=== PATIENT | female | born 1955 | race African-American/Black ===

== ENCOUNTER 2024-12-29 11:41 | Inpatient (IN) ==
[2024-12-29] MEDS ORDERED: [UNRECOGNIZED DRUG - OTHER] IV ONE (12:38)
--- NOTE | 2024-12-29 12:47 | Emergency Department Note ---
HPI - Extremity Problem General Chief complaint: Extremity Injury, Upper Stated complaint: blood clot in arm Time Seen by Provider: 12/29/24 12:44 Source: patient Mode of arrival: walk-in Limitations: no limitations History of Present Illness HPI Narrative: 69-year-old female presents to ER from her primary care provider's office for increased pain to the right arm, patient has had a ultrasound of the right arm outpatient which revealed a superficial thrombophlebitis from the bicep down to the wrist of the right arm. MD Complaint: Reports extremity pain and extremity swelling Onset (ago): day(s) (2) Pain Consistency: Reports constant Location: Reports right and upper extremity Quality: Reports aching and constant Radiation: Reports distal Relieving factors: Reports immobilization and rest Exacerbating factors: Reports range of motion and palpation Associated symptoms: Reports myalgias Context: Reports recent surgery/procedure Related Data Home Medications Medication Instructions Recorded Confirmed atorvastatin 40 mg tablet 40 mg PO BEDTIME 12/29/24 carvedilol 12.5 mg tablet 12.5 mg PO BID 12/29/2412/13 cefdinir 300 mg capsule 300 mg PO DAILY 12/29/24 furosemide 40 mg tablet 40 mg PO DAILY 12/29/2412/13 hydralazine 25 mg tablet 25 mg PO TID 12/29/24 ticagrelor 90 mg tablet (Brilinta) 90 mg PO BID 12/29/24 Allergies Allergy/AdvReac Type Severity Reaction Status Date / Time No Known Drug Allergies Allergy Verified 12/29/24 12:04 Review of Systems 2 Status of ROS 10 or more systems reviewed and unremark able except as noted in history and below Constitutional Reports: fatigue Musculoskeletal Reports: extremity pain, extremity swelling and joint pain Psychiatric Reports: anxiety PFSH PFSH Medical History (Updated 12/29/24 @ 12:14 by Pebbles Diallo RN) HLD (hyperlipidemia) CHF (congestive heart failure) Hypertension Surgical History (Updated 12/29/24 @ 12:14 by Pebbles Diallo RN) Hx of angioplasty Social History Smoking status: smoker, status unknown Life stressor details: n/a Exam 2 Constitutional: normal general appearance, distress noted (moderate), average body habitus, limitations noted (physical limitations) (Recent heart cath) and alert Vital Signs - 24 hr 12/29/24 11:50 12/29/24 11:50 Temperature 98.4 F Pulse Rate 83 Pulse Rate [Right Radial] 80 Respiratory Rate 16 Blood Pressure 139/65 Pulse Oximetry 98 Oxygen Delivery Me thod Room Air HENMT: normocephalic, head/scalp atraumatic, hearing grossly normal bilaterally, external ears normal, external nose normal, oropharynx normal, dentition normal and gingiva normal Eyes: PERRL, EOMs intact bilaterally, conjunctivae normal, no scleral icterus, no papilledema, normal visual rueda by confrontation, alignment normal, periorbital findings normal and no nystagmus Neck/C-Spine: visual inspection normal, trachea midline, cervical spine nontender, cervical full ROM noted, supple and no meningeal signs Lymph: no lymphadenopathy noted and no lymphedema noted Chest: inspection of chest normal Respiratory: breath sounds equal bilaterally, normal respiratory effort, clear to auscultation bilaterally, no wheezes, no rales, no retractions and no use of accessory muscles Cardiovascular: normal heart rate noted, regular rhythm noted, no gallop, no JVD, peripheral pulses 2+ throughout and no additional abnormal heart sounds Gastrointestinal: abdomen normal to inspection, abdomen soft to palpation, nontender to palpation, nondistended, normoactive bowel sounds, no hepatosplenomegaly, no masses, no pulsatile mass and no ascites Genitourinary: no CVA tenderness and bladder normal to palpation Back/Pelvis: spine normal to inspection Extremities: normal to inspection, normal to palpation, tenderness noted, full ROM, no joint enlargement and no deformity Patient has pain and tenderness to the right upper extremity from mid bicep down to the wrist related to a blood clot that was found on ultrasound indicating superficial thrombophlebitis of the right arm. Neurology: fire boss II-XII intact, no movement abnormality noted, no focal motor deficit noted, no sensory deficits noted, gait abnormality noted (unable to access), speech normal, coordination normal, no pronator drift noted, no fasciculations noted and GCS normal Psychiatry: Mental Status Exam documented within this Exam's Psych section mental status grossly normal, oriented x3, thought process normal, cooperative, affect normal, psychomotor activity normal and memory normal Life stressor details: n/a Skin: skin color normal, no rash, no lesions, no ecchymosis noted, no wounds, no lacerations, skin turgor normal, no jaundice, no petechiae, no mottling, nails normal and no alopecia Image: Body (4 view): 1. pain and tenderness, confirmed superficial thrombophlebitis Course Course Hospital Course: 69-year-old female that presented ER from her primary care provider's office for evaluation after having had a ultrasound of her right upper extremity where a superficial thrombophlebitis was discovered from the bicep area all the way to the wrist and arm has been evaluated by physical exam, UA, BMP, CBC, PT, PTT, INR and plain film chest x-ray as well as EKG results as noted in charting. CBC reveals anemia with a hemoglobin of 8.1, CMP reveals hypokalemia with a potassium of 3.3, dehydration reflected in a BUN of 29 creatinine 1.8 as well as acute kidney injury, patient is hypocalcemic at 8.4, patient's troponin shows elevation at 295 but was recently discharged from [facility] after having an acute myocardial infarction and repeat troponin shows decrease in the troponin level, patient's PT PTT and INR will continue to be serially monitored while patient is on a heparin drip for the blood clot in her right arm. Patient will be admitted to the [facility] floor for heparin drip administration and electrolyte replacement as necessary with repeat drug titration as necessary and pain control management. Patient and family are aware of treatment plan agreed with it. Vital Signs Vital signs: Vital Signs Temperature 98.4 F 12/29/24 11:50 Pulse Rate 83 12/29/24 11:50 Respiratory Rate 16 12/29/24 11:50 Blood Pressure 139/65 12/29/24 11:50 Pulse Oximetry 98 12/29/24 11:50 Oxygen Delivery Method Room Air 12/29/24 11:50 Temperature 98.4 F 12/29/24 11:50 Pulse Rate 80 12/29/24 11:50 Respiratory Rate 16 12/29/24 11:50 Blood Pressure 139/65 12/29/24 11:50 Pulse Oximetry 98 12/29/24 11:50 Oxygen Delivery Method Room Air 12/29/24 11:50 MDM - Extremity (Nontraumatic) MDM Narrative Medical decision making narrative: Medical Decision Making this patient involved physical exam, review of medical records, CBC, BMP, UA, Troponin, plain film chest x-ray, BNP, and CK. Differential Diagnosis Differential diagnosis: Likely cellulitis, superficial thrombophlebitis, deep venous thrombosis of upper extremity and other (Humeral fracture, shoulder dislocation) Medical Records Attestation: I reviewed the patient's medical records. Lab Data Attestation: I reviewed the patient's lab results. Labs: Lab Results 12/29/24 12/29/24 12/29/24 Range/Units 12:37 12:40 12:47 WBC 7.3 (4.3-9.3) K/uL RBC 3.6 L (4.00-5.50) M/uL Hgb 8.1 L (12.5-15.8) gm/dL Hct 24.9 L (35.9-46.7) % MCV 68.7 L (81.0-93.7) fl MCH 22.2 L (27.6-32.2) pg MCHC 32.3 L (33.1-35.3) g/dl RDW 17.6 H (11.4-14.2) % Plt Count 372 H (152-353) K/uL MPV 8.3 (6.9-10.8) fl Gran % 71.4 H (47.8-71.3) % Lymph % (Auto) 14.2 L (20.0-43.0) % [place] % (Auto) 10.6 H (3.6-9.8) % Eos % (Auto) 3.0 H (0.4-2.8) % Baso % (Auto) 0.8 (0.1-0.85) Lymph # (Auto) 1.0 L (1.1-3.1) [place] # (Auto) 0.8 L (1.1-3.1) Eos # (Auto) 0.2 (0.0-0.2) Baso # (Auto) 0.1 (0.0-0.1) Absolute Gran (auto) 5.2 (2.3-6.0) PT 15.2 H (12.1-15.0) SECONDS PT Normal Control 13.7 INR 1.16 APTT 32.0 (23.9-36.7) SECONDS Sodium 141 (136-145) mmol/L Potassium 3.3 L (3.6-5.2) mmol/L Chloride 103.0 (98-107) mmol/L Carbon Dioxide 27 (21-32) mmol/L Anion Gap 11.0 (4-14) mEq/L BUN 29 H (7-18) mg/dL Creatinine 1.8 H (0.6-1.3) mg/dL Estimated GFR 29.8 (>59.9) Glucose 102 (70-110) mg/dL Calcium 8.4 L (8.5-10.1) mg/dL Phosphorus 4.2 (2.5-4.9) mg/dL Magnesium 2.3 (1.8-2.4) mg/dL Troponin I High Sens 295.40 H* (4.0-60.4) ng/L B-Natriuretic Peptide 703.0 H (0-100) pg/mL Urine Color Yellow (STRAW/YELL.) Urine Appearance Clear (CLEAR) Ur Specific [place] 1.015 (1.001-1.035) Urine Protein Negative (NEGATIVE) Urine Glucose (UA) Normal (NORMAL) Urine Ketones Negative (NEGATIVE) Urine Occult Blood Negative (NEG - TRACE) Urine Nitrite Negative (NEGATIVE) Urine Bilirubin Negative (NEGATIVE) Urine Urobilinogen Normal (NORMAL) Ur Leukocyte Esterase Negative (NEGATIVE) Fluid pH 6.0 (5 - 9) / Range/Units 17:00 WBC (4.3-9.3) K/uL RBC (4.00-5.50) M/uL Hgb (12.5-15.8) gm/dL Hct (35.9-46.7) % MCV (81.0-93.7) fl MCH (27.6-32.2) pg MCHC (33.1-35.3) g/dl RDW (11.4-14.2) % Plt Count (152-353) K/uL MPV (6.9-10.8) fl Gran % (47.8-71.3) % Lymph % (Auto) (20.0-43.0) % [place] % (Auto) (3.6-9.8) % Eos % (Auto) (0.4-2.8) % Baso % (Auto) (0.1-0.85) Lymph # (Auto) (1.1-3.1) [place] # (Auto) (1.1-3.1) Eos # (Auto) (0.0-0.2) Baso # (Auto) (0.0-0.1) Absolute Gran (auto) (2.3-6.0) PT 14.9 (12.1-15.0) SECONDS PT Normal Control 13.7 INR 1.12 APTT 47.3 H (23.9-36.7) SECONDS Sodium (136-145) mmol/L Potassium (3.6-5.2) mmol/L Chloride (98-107) mmol/L Carbon Dioxide (21-32) mmol/L Anion Gap (4-14) mEq/L BUN (7-18) mg/dL Creatinine (0.6-1.3) mg/dL Estimated GFR (>59.9) Glucose (70-110) mg/dL Calcium (8.5-10.1) mg/dL Phosphorus (2.5-4.9) mg/dL Magnesium (1.8-2.4) mg/dL Troponin I High Sens 289.80 H* (4.0-60.4) ng/L B-Natriuretic Peptide (0-100) pg/mL Urine Color (STRAW/YELL.) Urine Appearance (CLEAR) Ur Specific [place] (1.001-1.035) Urine Protein (NEGATIVE) Urine Glucose (UA) (NORMAL) Urine Ketones (NEGATIVE) Urine Occult Blood (NEG - TRACE) Urine Nitrite (NEGATIVE) Urine Bilirubin (NEGATIVE) Urine Urobilinogen (NORMAL) Ur Leukocyte Esterase (NEGATIVE) Fluid pH (5 - 9) Imaging Data Imaging ordered: Chest x-ray, CT scan - head and other ( US RIGHT UPPER Extremity) Attestation: I have reviewed the pertinent imaging results. My impression: No acute cardiopulmonary process. Radiologist's impression: EXAM: Right upper extremity venous Doppler evaluation HISTORY: Right upper extremity pain and swelling, history recent IV TECHNIQUE: Multiple grayscale sonographic images were obtained. Color duplex Doppler evaluation was performed. COMPARISON: None FINDINGS: Jugular vein, subclavian vein, axillary vein, brachial vein, and basilic veins, radial vein, ulnar veins are patent demonstrating normal flow, compression, and distal augmentation. Thrombus is identified in a long segment of cephalic vein consistent with superficial thrombophlebitis. IMPRESSION: Exam negative for deep venous thrombosis right upper extremity Exam positive for superficial thrombophlebitis involving a long segment of cephalic vein extending to the wrist. THIS IS AN ELECTRONICALLY VERIFIED FINAL REPORT 12/29/2024 11:45 AM - Electronically signed by Raymond Rondon MD EXAM: CT HEAD/BRAIN WO CON HISTORY: Confusion COMPARISON: None. TECHNIQUE: Axial non-contrast images of the head were obtained with coronal and sagittal reformats provided. Radiation dose: 1156.6 mGy-cm total DLP FINDINGS: No abnormal areas of acute attenuation in the brain parenchyma. Small focus of encephalomalacia in the central aspect of the sonia and in the right basal ganglia extending to the lateral margin of the caudate head. Story-white differentiation remains intact. No intracranial, extra-axial, fluid collection. No hemorrhage. Periventricular chronic microvascular disease. No mass, mass effect or midline shift. Age related brain parenchymal global atrophy. No ventriculomegaly. No acute fracture. Sinuses are well aerated. Mastoid air cells are well aerated. Globes and intra-orbital contents are unremarkable. IMPRESSION: No acute intracranial abnormality identified. THIS IS AN ELECTRONICALLY VERIFIED FINAL REPORT 12/29/2024 7:26 PM - Electronically signed by Marbin Burns MD ECG Data Attestation ECG: I have reviewed the pertinent ECG results. Interpretation: Sinus rhythm rate 81 Normal P axis PACs RR 740 WV 209 QT 463 P axis 49 QRS 45 T -33 prolonged QT No STEMI Discharge Plan Discharge Patient Disposition: Admitted As Observation Condition: Stable Clinical Impression: Superficial thrombophlebitis of arm, Acute hypokalemia, Hypocalcemia, Acute kidney injury, Dehydration, Anemia Time of Disposition: 14:30
[2024-12-29 12:55] LABS: Basophils #(Absolute) Auto 0.1 (0.0-0.1); Basophils%(Percent) Auto 0.8 (0.1-0.85); Eosinophils#(Absolute)Auto 0.2 (0.0-0.2); Granulocytes % - Auto 71.4 % (47.8-71.3); Granulocytes#(Absolute)- Auto 5.2 (2.3-6.0); Hematocrit 24.9 % (35.9-46.7); Mean Corpuscular Volume 68.7 fl (81.0-93.7); Monocytes #(Absolute)- Auto 0.8 (1.1-3.1); Monocytes %(Percent)- Auto 10.6 % (3.6-9.8); Platelet Count 372 K/uL (152-353); White Blood Count 7.3 K/uL (4.3-9.3)
[2024-12-29 12:57] LABS: Potassium 3.3 mmol/L (3.6-5.2)
[2024-12-29 15:01] LABS: Specific Gravity Urine 1.015 (1.001-1.035); Urine Appearance CLEAR (CLEAR); Urine Blood NEGATIVE (NEG - TRACE); Urine Color YELLOW (STRAW/YELL.); Urine Urobilinogen Normal (NORMAL)
[2024-12-29 17:27] LABS: INR 1.16
[2024-12-29] MEDS ORDERED: DOCUSATE SODIUM 100 MG CAPSULE PO PRN (17:45)
[2024-12-29] MEDS ORDERED: MAGNESIUM, ALUMINUM HYDROXIDE 30 ML ORAL.SUSP PO PRN (17:45)
[2024-12-29] MEDS ORDERED: ONDANSETRON HCL/PF 4 MG/2 ML VIAL INJ PRN (17:45)
[2024-12-29] MEDS ORDERED: ACETAMINOPHEN 500 MG TABLET PO PRN (17:45)
[2024-12-29] MEDS ORDERED: MORPHINE SULFATE 4 MG/ML CARTRIDGE IV PRN (17:55)
[2024-12-29] MEDS ORDERED: HYDROCODONE/ACETAMINOPHEN 7.5/325MG TABLET PO PRN (17:55)
[2024-12-29 18:23] LABS: INR 1.12
[2024-12-29] MEDS: FUROSEMIDE 40 MG TABLET PO STA (20:34)
[2024-12-29] MEDS: carvediloL 25 MG TABLET PO ONE (21:50)
[2024-12-29] MEDS: ATORVASTATIN CALCIUM 40 MG TABLET PO ONE (21:51)
[2024-12-29] MEDS: CEFDINIR 300 MG CAPSULE PO ONE (21:51)
[2024-12-29] MEDS: HYDRALAZINE HCL 25 MG TABLET PO ONE (21:53)
[2024-12-30 05:18] LABS: Basophils #(Absolute) Auto 0.1 (0.0-0.1); Basophils%(Percent) Auto 1.1 (0.1-0.85); Eosinophils#(Absolute)Auto 0.3 (0.0-0.2); Eosinophils%(Percent) Auto 4.1 % (0.4-2.8); Granulocytes % - Auto 66.3 % (47.8-71.3); Granulocytes#(Absolute)- Auto 4.6 (2.3-6.0); Mean Corpuscular Volume 67.9 fl (81.0-93.7); Monocytes #(Absolute)- Auto 0.8 (1.1-3.1); Platelet Count 335 K/uL (152-353); White Blood Count 6.9 K/uL (4.3-9.3)
[2024-12-30 05:27] LABS: Potassium 3.5 mmol/L (3.6-5.2)
[2024-12-30 05:35] LABS: Hematocrit 22.8 % (35.9-46.7)
[2024-12-30] MEDS: CEFTRIAXONE SODIUM 1 GM in 0.9 % SODIUM CHLORIDE MB+ 50 ML IV SCH (10:00)
--- NOTE | 2024-12-30 10:09 | History & Physical Report ---
H&P: HPI History of Present Illness Chief complaint: blood clot in arm Review of Systems Status of ROS 10 or more systems reviewed and unremark able except as noted in history and below Constitutional Reports: fatigue Musculoskeletal Reports: extremity pain, extremity swelling and joint pain Psychiatric Reports: anxiety Endocrine Reports: fatigue PFSH PFSH Medical History (Updated 12/30/24 @ 10:08 by Lev Neves NP) Thrombophlebitis arm HLD (hyperlipidemia) CHF (congestive heart failure) Hypertension Surgical History (Updated 12/29/24 @ 12:14 by Pebbles Diallo RN) Hx of angioplasty Social History Smoking status: smoker, status unknown Problems where you live: no known problems Highest level of school completed/degree received: high school Life stressor details: n/a Gender Identity: female Meds Home Medications and Allergies Home Medications Medication Instructions Recorded Confirmed Type atorvastatin 40 mg tablet 40 mg PO BEDTIME 12/29/24 History carvedilol 12.5 mg tablet 12.5 mg PO BID 12/29/2412/13 History cefdinir 300 mg capsule 300 mg PO DAILY 12/29/24 History furosemide 40 mg tablet 40 mg PO DAILY 12/29/2412/13 History hydralazine 25 mg tablet 25 mg PO TID 12/29/24 History ticagrelor 90 mg tablet (Brilinta) 90 mg PO BID 12/29/24 History Allergies Allergy/AdvReac Type Severity Reaction Status Date / Time No Known Drug Allergies Allergy Verified 12/29/24 12:04 Exam Constitutional: Vital Signs - 24 hr 12/29/24 11:50 12/29/24 11:50 12/29/24 14:33 Temperature 98.4 F Pulse Rate 83 Pulse Rate [Right Radial] 80 Respiratory Rate 16 Blood Pressure 139/65 Blood Pressure [Le ft Arm] Pulse Oximetry 98 Oxygen Delivery Me thod Room Air Room Air 12/29/24 19:00 12/29/24 19:30 12/29/24 20:05 Temperature Pulse Rate 80 81 94 H Pulse Rate [Right Radial] Respiratory Rate 14 15 16 Blood Pressure 155/60 149/59 180/98 Blood Pressure [Le ft Arm] Pulse Oximetry 96 96 96 Oxygen Delivery Me thod Room Air Room Air Room Air 12/29/24 20:05 12/29/24 23:16 12/30/24 03:19 Temperature 98.4 F 97.8 F 98.4 F Pulse Rate 94 H Pulse Rate [Right Radial] 86 76 Respiratory Rate 18 21 18 Blood Pressure 180/98 Blood Pressure [Le ft Arm] 141/71 123/53 Pulse Oximetry 96 96 96 Oxygen Delivery Me thod Room Air Room Air 12/30/24 07:34 12/30/24 07:37 Temperature 99.2 F 99.2 F Pulse Rate Pulse Rate [Right Radial] 46 L 46 L Respiratory Rate 19 19 Blood Pressure Blood Pressure [Le ft Arm] 146/69 146/69 Pulse Oximetry 97 97 Oxygen Delivery Me thod Room Air Room Air Results Labs Labs: CBC 12/29/24 12/30/24 Range/Units 12:40 05:06 WBC 7.3 6.9 (4.3-9.3) K/uL RBC 3.6 L 3.4 L (4.00-5.50) M/uL Hgb 8.1 L 7.4 L (12.5-15.8) gm/dL Hct 24.9 L 22.8 L* (35.9-46.7) % Plt Count 372 H 335 (152-353) K/uL Gran % 71.4 H 66.3 (47.8-71.3) % Lymph % (Auto) 14.2 L 17.5 L (20.0-43.0) % [place] % (Auto) 10.6 H 11.0 H (3.6-9.8) % Eos % (Auto) 3.0 H 4.1 H (0.4-2.8) % Baso % (Auto) 0.8 1.1 H (0.1-0.85) Lymph # (Auto) 1.0 L 1.2 (1.1-3.1) [place] # (Auto) 0.8 L 0.8 L (1.1-3.1) Eos # (Auto) 0.2 0.3 H (0.0-0.2) Baso # (Auto) 0.1 0.1 (0.0-0.1) Absolute Gran (auto) 5.2 4.6 (2.3-6.0) CMP 12/29/24 12/30/24 12:40 05:06 Sodium 141 143 Potassium 3.3 L 3.5 L Chloride 103.0 107.0 Carbon Dioxide 27 25 BUN 29 H 25 H Creatinine 1.8 H 1.5 H Glucose 102 96 Calcium 8.4 L 8.1 L Urine 12/29/24 12:37 Urine Color Yellow Urine Appearance Clear Ur Specific [place] 1.015 Urine Protein Negative Urine Glucose (UA) Normal
[2024-12-30] MEDS: PANTOPRAZOLE SODIUM 40 MG TABLET.DR PO SCH (10:26)
[2024-12-30] MEDS: HYDRALAZINE HCL 25 MG TABLET PO SCH (10:27)
--- NOTE | 2024-12-30 11:04 | History & Physical Report ---
H&P: HPI History of Present Illness Chief complaint: blood clot in arm Narrative: Ms. Layla Gomez is a 69 year old female admitted on 12/29/24 for further evaluation after being sent to the ER from PCP office after outpatient ultrasound revealed a superficial thrombophlebitis from the bicep down to the wrist of the right arm. Complete medical history unknown. Patient has a known medical of hisotry HTN, CAD, and CHF. CT and CXR were completed in the ER and there were no acute findings. WBC WNL. Initial CBC revealed anemia with a hemoglobin of 8.1 and hematocrit of 24.9. Hemoglobin has decreased to 7.4 this morning with a hematocrit of 22.8. Initial CMP revealed hypokalemia with a potassium of 3.3. Potassium has improved to 3.5 this morning. Initial BUN of 29 and creatinine of 1.8. BUN has improved to 25 with a creatinine of 1.5 this morning. Initial BNP was 703 and has increased to 1030 this morning. Patient's initial troponin showed elevation at 295.4 but patient was recently discharged from [facility] in [place] after having an acute myocardial infarction with cardiac stent placement. Serial troponin shows a decrease. Admitted to the floor and placed on a heparin drip per protocol. Patient appeared lethargic upon assessment and was oriented to person and place only. Right arm noted to have bruising, erythema, warmth, and non-pitting edema. Firmness and tenderness noted upon palpation to right forearm extending from wrist to elbow. Bruising also noted to right groin area. Patient is a poor historian at this time so daughter Rossy was contacted for patient's medical history. On 12/22/24 patient presented to the ER with complaints of cough, dyspnea, and swelling. She ultimately went into respiratory distress and was placed on a ventilator and transferred to [facility] in [place] for Acute TN, Acute CHF, Acute pulmonary edema, and Acute respiratory distress. Patient underwent coronary stent placement and was discharged from [facility] on 12/27/24 per daughter. Daughter reports that prior to patient's intubation she was alert and oriented, ambulatory, independent and "working". Patient has been having intermittent episodes of confusion during hospitalization that are consistent with hospital acquired delirium. Awaiting records from Dr. Delgado and [facility]. Review of Systems 2 Status of ROS 10 or more systems reviewed and unremark able except as noted in history and below Constitutional Reports: fatigue (lethargic) Musculoskeletal Reports: extremity pain, extremity swelling and joint pain Neurological Reports: difficulty communicating thoughts Endocrine Reports: fatigue PFSH PFSH Medical History (Updated 12/30/24 @ 14:34 by Lev Neves NP) Thrombophlebitis arm HLD (hyperlipidemia) CHF (congestive heart failure) Hypertension Surgical History (Updated 12/29/24 @ 12:14 by Pebbles Diallo RN) Hx of angioplasty Social History Smoking status: smoker, status unknown Problems where you live: no known problems Highest level of school completed/degree received: high school Life stressor details: n/a Gender Identity: female Meds Home Medications and Allergies Home Medications Medication Instructions Recorded Confirmed Type atorvastatin 40 mg tablet 40 mg PO BEDTIME 12/29/24 History carvedilol 12.5 mg tablet 12.5 mg PO BID 12/29/2412/13 History cefdinir 300 mg capsule 300 mg PO DAILY 12/29/24 History furosemide 40 mg tablet 40 mg PO DAILY 12/29/2412/13 History hydralazine 25 mg tablet 25 mg PO TID 12/29/24 History ticagrelor 90 mg tablet (Brilinta) 90 mg PO BID 12/29/24 History Allergies Allergy/AdvReac Type Severity Reaction Status Date / Time No Known Drug Allergies Allergy Verified 12/29/24 12:04 Exam 2 Constitutional: normal general appearance, no apparent distress, average body habitus and alert Vital Signs - 24 hr 12/29/24 11:50 12/29/24 11:50 12/29/24 14:33 Temperature 98.4 F Pulse Rate 83 Pulse Rate [Right Radial] 80 Respiratory Rate 16 Blood Pressure 139/65 Blood Pressure [Le ft Arm] Pulse Oximetry 98 Oxygen Delivery Me thod Room Air Room Air 12/29/24 19:00 12/29/24 19:30 12/29/24 20:05 Temperature Pulse Rate 80 81 94 H Pulse Rate [Right Radial] Respiratory Rate 14 15 16 Blood Pressure 155/60 149/59 180/98 Blood Pressure [Le ft Arm] Pulse Oximetry 96 96 96 Oxygen Delivery Me thod Room Air Room Air Room Air 12/29/24 20:05 12/29/24 23:16 12/30/24 03:19 Temperature 98.4 F 97.8 F 98.4 F Pulse Rate 94 H Pulse Rate [Right Radial] 86 76 Respiratory Rate 18 21 18 Blood Pressure 180/98 Blood Pressure [Le ft Arm] 141/71 123/53 Pulse Oximetry 96 96 96 Oxygen Delivery Me thod Room Air Room Air 12/30/24 07:34 12/30/24 07:37 Temperature 99.2 F 99.2 F Pulse Rate Pulse Rate [Right Radial] 46 L 46 L Respiratory Rate 19 19 Blood Pressure Blood Pressure [Le ft Arm] 146/69 146/69 Pulse Oximetry 97 97 Oxygen Delivery Me thod Room Air Room Air Lymph: no lymphadenopathy noted and no lymphedema noted Chest: inspection of chest normal and palpation of chest normal Respiratory: breath sounds equal bilaterally, normal respiratory effort, clear to auscultation bilaterally, no wheezes, no rales, no retractions and no use of accessory muscles Cardiovascular: normal heart rate noted, regular rhythm noted, no gallop, no rub, no murmur, no JVD and no clicks Gastrointestinal: abdomen normal to inspection, abdomen soft to palpation, nontender to palpation, nontender to percussion, nondistended and normoactive bowel sounds Genitourinary: no CVA tenderness and bladder normal to palpation Back/Pelvis: spine normal to inspection, no thoracic spine tenderness, no lumbar spine tenderness, thoracic spine ROM normal and lumbar spine ROM normal Extremities: Bruising, erythema, edema, and tenderness to right upper extremity. Psychiatry: Mental Status Exam documented in the separate MSE Skin: Bruising to right arm and right groin from recent cardiac stent placement. Image: Body (4 view): 1. bruising, edema, erythema 2. bruising, nodule 3. bruising, edema, erythema Assessment and Plan Assessment and Plan (1) Thrombophlebitis arm: Code(s): I80.8 - Phlebitis and thrombophlebitis of other sites (2) Anemia: Code(s): D64.9 - Anemia, unspecified (3) Altered mental status: Code(s): R41.82 - Altered mental status, unspecified (4) Weakness: Code(s): R53.1 - Weakness Plan Thrombophlebitis: 1. Heparin drip per protocol 2. Rocephin 1 gram IV daily 3. Blood Cultures X 2 4. AU Consult 5. Obtain records from Dr. Delgado and [facility] in [place] 6. Repeat Troponin Anemia: 1. Anemia Profile 2. Occult Blood Feces 3. Type and Cross 4. Repeat CBC at 1430 and in am 5. Consider transfusion PRBCs Altered Mental Status: 1. Neuro Checks Q4H 2. Liver Function 3. Consider checking ammonia if LFTs elevated 4. Psych Evaluation Weakness: 1. PT evaluation 2. Fall Precautions Results Labs Labs: CBC 12/29/24 12/30/24 Range/Units 12:40 05:06 WBC 7.3 6.9 (4.3-9.3) K/uL RBC 3.6 L 3.4 L (4.00-5.50) M/uL Hgb 8.1 L 7.4 L (12.5-15.8) gm/dL Hct 24.9 L 22.8 L* (35.9-46.7) % Plt Count 372 H 335 (152-353) K/uL Gran % 71.4 H 66.3 (47.8-71.3) % Lymph % (Auto) 14.2 L 17.5 L (20.0-43.0) % [place] % (Auto) 10.6 H 11.0 H (3.6-9.8) % Eos % (Auto) 3.0 H 4.1 H (0.4-2.8) % Baso % (Auto) 0.8 1.1 H (0.1-0.85) Lymph # (Auto) 1.0 L 1.2 (1.1-3.1) Becker # (Auto) 0.8 L 0.8 L (1.1-3.1) Eos # (Auto) 0.2 0.3 H (0.0-0.2) Baso # (Auto) 0.1 0.1 (0.0-0.1) Absolute Gran (auto) 5.2 4.6 (2.3-6.0) CMP 12/29/24 12/30/24 12:40 05:06 Sodium 141 143 Potassium 3.3 L 3.5 L Chloride 103.0 107.0 Carbon Dioxide 27 25 BUN 29 H 25 H Creatinine 1.8 H 1.5 H Glucose 102 96 Calcium 8.4 L 8.1 L Urine 12/29/24 12:37 Urine Color Yellow Urine Appearance Clear Ur Specific Palmer 1.015 Urine Protein Negative Urine Glucose (UA) Normal ECG Attestation: I have reviewed the pertinent ECG results. Imaging Imaging ordered: Chest x-ray, CT scan - head and Venous US Attestation: I have reviewed the pertinent imaging results. Radiologist's impression: US VENOUS DUPLEX FINDINGS: Jugular vein, subclavian vein, axillary vein, brachial vein, and basilic veins, radial vein, ulnar veins are patent demonstrating normal flow, compression, and distal augmentation. Thrombus is identified in a long segment of cephalic vein consistent with superficial thrombophlebitis. IMPRESSION: Exam negative for deep venous thrombosis right upper extremity Exam positive for superficial thrombophlebitis involving a long segment of cephalic vein extending to the wrist. CHEST X-RAY FINDINGS: The trachea is midline. The cardiac silhouette is slight to moderately enlarged. The lungs are clear without focal infiltrate or effusion. The bony thorax is unremarkable. IMPRESSION: No acute cardiopulmonary disease. CT HEAD FINDINGS: No abnormal areas of acute attenuation in the brain parenchyma. Small focus of encephalomalacia in the central aspect of the sonia and in the right basal ganglia extending to the lateral margin of the caudate head. Story-white differentiation remains intact. No intracranial, extra-axial, fluid collection. No hemorrhage. Periventricular chronic microvascular disease. No mass, mass effect or midline shift. Age related brain parenchymal global atrophy. No ventriculomegaly. No acute fracture. Sinuses are well aerated. Mastoid air cells are well aerated. Globes and intra-orbital contents are unremarkable. IMPRESSION: No acute intracranial abnormality identified.
[2024-12-30] MEDS: carvediloL 6.25 MG TABLET PO SCH (11:34)
[2024-12-30] MEDS: FUROSEMIDE 40 MG TABLET PO SCH (11:34)
[2024-12-30] MEDS ORDERED: PANTOPRAZOLE SODIUM 40 MG TABLET.DR PO SCH (12:00)
[2024-12-30 14:31] LABS: Basophils%(Percent) Auto 0.3 (0.1-0.85); Eosinophils#(Absolute)Auto 0.3 (0.0-0.2); Granulocytes % - Auto 68.3 % (47.8-71.3); Granulocytes#(Absolute)- Auto 4.5 (2.3-6.0); Monocytes #(Absolute)- Auto 0.8 (1.1-3.1); Monocytes %(Percent)- Auto 11.8 % (3.6-9.8); Platelet Count 350 K/uL (152-353); White Blood Count 6.6 K/uL (4.3-9.3)
[2024-12-30 14:34] LABS: Hematocrit 22.6 % (35.9-46.7)
[2024-12-30] MEDS: ATORVASTATIN CALCIUM 40 MG TABLET PO SCH (20:17)
[2024-12-31 06:15] LABS: Basophils #(Absolute) Auto 0.1 (0.0-0.1); Eosinophils#(Absolute)Auto 0.3 (0.0-0.2); Granulocytes#(Absolute)- Auto 4.1 (2.3-6.0); White Blood Count 6.4 K/uL (4.3-9.3)
[2024-12-31 06:22] LABS: Basophils%(Percent) Auto 1.1 (0.1-0.85); Eosinophils%(Percent) Auto 5.2 % (0.4-2.8); Mean Corpuscular Volume 68.3 fl (81.0-93.7); Monocytes #(Absolute)- Auto 0.7 (1.1-3.1); Platelet Count 348 K/uL (152-353)
[2024-12-31 06:29] LABS: Potassium 3.8 mmol/L (3.6-5.2)
--- NOTE | 2024-12-31 09:51 | Progress Note ---
Exam 2 Exam: Patient received sitting up in the recliner at bedside eating breakfast. She is awake, alert and oriented this morning. She reports that she feels better today and that her arm pain has improved. Right arm has improved in appearance with decreased swelling and bruising. AU consult completed with Dr. Cabello yesterday and agreeable with plan while awaiting records from [facility] in [place]. AU to continue to follow. H&H has continued to decline with a Hemoglobin of 6.9 and Hematocrit of 21 this morning. Occult blood feces is pending. Patient reports she hasn't had a bowel movement "so far this week". Will add Miralax. BNP has continued to increase and is now 1520. Will plan to transfuse 2 units PRBCs and diurese with Furosemide 20mg IV between units. Spoke with patient's hydraulic tester Dr. Silva and he recommended discontinuing heparin drip due to no evidence of DVT. He also recommended resuming home Brillinta and ASA along with supportive management including compression, elevation, and warm compresses to the right arm. Constitutional: normal general appearance, no apparent distress and average body habitus Vital Signs - 24 hr 12/30/24 11:51 12/30/24 15:53 12/30/24 20:00 Temperature 99.1 F 98.4 F 98.8 F Pulse Rate [Right Radial] 57 L 82 86 Respiratory Rate 19 18 16 Blood Pressure [Le ft Arm] 168/76 139/70 171/72 Pulse Oximetry 96 96 95 Oxygen Delivery Me thod Room Air Room Air Room Air 12/30/24 23:57 12/31/24 03:00 12/31/24 07:00 Temperature 98.5 F 98.7 F 98 F Pulse Rate [Right Radial] 85 84 89 Respiratory Rate 18 16 19 Blood Pressure [Le ft Arm] 167/74 158/76 150/100 Pulse Oximetry 96 100 Oxygen Delivery Me thod Room Air Room Air HENMT: normocephalic, head/scalp atraumatic, hearing grossly normal bilaterally, external ears normal and EACs normal Eyes: PERRL, EOMs intact bilaterally, conjunctivae normal and no scleral icterus Neck/C-Spine: visual inspection normal and trachea midline Lymph: no lymphadenopathy noted and no lymphedema noted Chest: inspection of chest normal and palpation of chest normal Respiratory: breath sounds equal bilaterally, normal respiratory effort, clear to auscultation bilaterally, no wheezes, no rales, no retractions and no use of accessory muscles Cardiovascular: normal heart rate noted, regular rhythm noted, no gallop, no rub, no murmur, no JVD and no clicks Gastrointestinal: abdomen normal to inspection, abdomen soft to palpation, nontender to palpation, nontender to percussion, nondistended and normoactive bowel sounds Genitourinary: no CVA tenderness and bladder normal to palpation Back/Pelvis: spine normal to inspection, no thoracic spine tenderness, no lumbar spine tenderness, thoracic spine ROM normal and lumbar spine ROM normal Extremities: Bruising, erythema, edema, and tenderness to right upper extremity has improved. Psychiatry: Mental Status Exam documented within this Exam's Psych section oriented x3, thought process normal, cooperative and affect normal Skin: skin color normal Bruising to right arm and right groin from recent cardiac stent placement. Image: Body (4 view): 1. Bruising, mild swelling and erythema 2. Bruising 3. Bruising, mild swelling, and erythema Progress Note: Objective Labs Labs: CBC 12/30/24 12/31/24 Range/Units 14:25 05:30 WBC 6.6 6.4 (4.3-9.3) K/uL RBC 3.3 L 3.1 L (4.00-5.50) M/uL Hgb 7.2 L 6.9 L (12.5-15.8) gm/dL Hct 22.6 L* 21.0 L* (35.9-46.7) % Plt Count 350 348 (152-353) K/uL Gran % 68.3 64.0 (47.8-71.3) % Lymph % (Auto) 15.6 L 18.7 L (20.0-43.0) % [place] % (Auto) 11.8 H 11.0 H (3.6-9.8) % Eos % (Auto) 4.0 H 5.2 H (0.4-2.8) % Baso % (Auto) 0.3 1.1 H (0.1-0.85) Lymph # (Auto) 1.0 L 1.2 (1.1-3.1) [place] # (Auto) 0.8 L 0.7 L (1.1-3.1) Eos # (Auto) 0.3 H 0.3 H (0.0-0.2) Baso # (Auto) 0.0 0.1 (0.0-0.1) Absolute Gran (auto) 4.5 4.1 (2.3-6.0) CMP 12/31/24 05:30 Sodium 141 Potassium 3.8 Chloride 106.0 Carbon Dioxide 26 BUN 23 H Creatinine 1.6 H Glucose 89 Calcium 8.1 L Liver Function 12/31/24 Range/Units 05:30 Total Bilirubin 0.50 (0.0-1.0) mg/dL AST 16 (15-37) U/L ALT 30 (30-65) U/L Alkaline Phosphatase 73 (50-136) U/L Albumin 2.2 L (3.4-5.0) g/dL Urine 12/29/24 12:37 Urine Color Yellow Urine Appearance Clear Ur Specific [place] 1.015 Urine Protein Negative Urine Glucose (UA) Normal Progress Note: A&P Assessment and Plan (1) Thrombophlebitis arm: (2) Anemia: (3) Altered mental status: (4) Weakness: (5) Constipation: Plan Thrombophlebitis: 1. D/C Heparin drip per Dr. Silva/Tub Chucker 2. Resume home Brillinta 90mg BID per Dr. Silva/Tub Chucker 3. Resume home ASA 81mg daily per Dr. Silva/Tub Chucker 4. Rocephin 1 gram IV daily 5. Blood Cultures Pending 6. AU will continue to follow 7. Compression, Elevation, and Warm Compress to right arm per Dr. Silva/Tub Chucker 8. Repeat Troponin Anemia: 1. Transfuse 2 units PRBCs 2. Occult Blood Feces pending 3. Follow CBC Altered Mental Status: 1. Neuro Checks Q4H 2. Liver Function-WNL Weakness: 1. PT evaluation 2. Fall Precautions Constipation: 1. Add Miralax 17gm daily Fall Risk Details Jones Fall Scale Risk Level: Moderate Fall Risk Current Medications: Current Medications Acetaminophen (Acetaminophen 500 Mg Tablet) 1,000 mg PO Q6H PRN PRN Reason: MILD PAIN SCALE 1-4 Hydrocodone Bitart/Acetaminophen (Hydrocodone/Acetaminophen 7.5/325mg Tablet) 1 each PO Q4H PRN PRN Reason: Moderate Pain SCALE 5-7 Atorvastatin Calcium (Atorvastatin Calcium 40 Mg Tablet) 40 mg PO BEDTIME [facility] Last Admin: 12/30/24 20:17 Dose: 40 mg Carvedilol (Carvedilol 6.25 Mg Tablet) 12.5 mg PO BID [facility] Last Admin: 12/31/24 08:13 Dose: 12.5 mg Docusate Sodium (Docusate Sodium 100 Mg Capsule) 100 mg PO DAILY PRN PRN Reason: Constipation Furosemide (Furosemide 40 Mg Tablet) 40 mg PO DAILY [facility] Last Admin: 12/31/24 08:13 Dose: 40 mg Hydralazine HCl (Hydralazine Hcl 25 Mg Tablet) 25 mg PO TID [facility] Last Admin: 12/31/24 08:13 Dose: 25 mg Heparin Sodium/Dextrose (Heparin/D5w 06538 U/250 Ml) 900 unit in 9 mls @ 0 mls/hr 12 unit/kg (900 unit) IV CONT [facility]; Protocol Last Admin: 12/31/24 07:26 Dose: Not Given Ceftriaxone Sodium 1 gm/ (Sodium Chloride) 50 mls @ 100 mls/hr IV Q24H [facility] Last Infusion: 12/30/24 10:30 Dose: Infused Magnesium Hydroxide (Magnesium, Aluminum Hydroxide 30 Ml Oral.Susp) 30 ml PO DAILY PRN PRN Reason: Heartburn Morphine Sulfate (Morphine Sulfate 4 Mg/Ml Cartridge) 4 mg IV Q6H PRN PRN Reason: Severe Pain SCALE 8-10 Ondansetron HCl (Ondansetron Hcl/Pf 4 Mg/2 Ml Vial) 4 mg INJ Q6H PRN PRN Reason: Nausea And Vomiting Pantoprazole Sodium (Pantoprazole Sodium 40 Mg Tablet.Dr) 40 mg PO DAILY [facility] Last Admin: 12/31/24 08:13 Dose: 40 mg Polyethylene Glycol (Polyethylene Glycol 3350 17 Gm Powd.Pack) 17 gm PO DAILY [facility] Time Spent With Patient Time: Total time spent is greater than 50% in coordination of care (as documented) at patient's floor/unit and/or counseling patient: Time with patient: 25 - 35 minutes
[2024-12-31] MEDS: ASPIRIN 81 MG TABLET.DR PO SCH (10:59)
[2024-12-31] MEDS: polyethylene glycoL 3350 17 GM POWD.PACK PO SCH (11:00)
[2024-12-31] MEDS: TICAGRELOR 60 MG TABLET PO SCH (11:00)
[2024-12-31] MEDS: FUROSEMIDE 20 MG/2 ML VIAL IV ONE ×2 (13:00→17:34)
[2024-12-31] MEDS: 0.9 % SODIUM CHLORIDE 250 ML IV ONE (17:33)
[2025-01-01 06:12] LABS: Basophils #(Absolute) Auto 0.1 (0.0-0.1); Basophils%(Percent) Auto 0.7 (0.1-0.85); Eosinophils#(Absolute)Auto 0.4 (0.0-0.2); Eosinophils%(Percent) Auto 5.1 % (0.4-2.8); Granulocytes % - Auto 76.3 % (47.8-71.3); Granulocytes#(Absolute)- Auto 6.3 (2.3-6.0); Hematocrit 31.1 % (35.9-46.7); Mean Corpuscular Volume 73.2 fl (81.0-93.7); Monocytes #(Absolute)- Auto 0.6 (1.1-3.1); Monocytes %(Percent)- Auto 7.8 % (3.6-9.8); Platelet Count 343 K/uL (152-353); White Blood Count 8.3 K/uL (4.3-9.3)
[2025-01-01 08:33] VITALS: PULSE 81
--- NOTE | 2025-01-01 10:35 | Discharge Summary ---
DS: Providers Provider Date of admission: 12/29/24 18:23 Primary care physician: Lizeth He DO Admitting clinician: Santy Diallo Attending physician on admission: Lev Neves Consults: 12/30/24 14:29 Consult to Physical Therapy Routine Comment: Consulting Provider: Reason for consultation: Weakness Physician Instructions: Evaluate and Treat Consult to Psychiatry Routine Comment: Consulting Provider: Lev Neves Physician Instructions: Reason for consultation: Confusion/Delirium Attending physician on discharge: Lev Neves Discharging clinician: Lizeth He Anticipated date of discharge: 01/06/25 DS: Diagnosis Discharge Diagnosis (1) Acute kidney injury: (2) Dehydration: (3) Thrombophlebitis arm: (4) Anemia: Qualifiers: Anemia type: other cause Other causes of anemia: other cause, not classified Qualified Code(s): D64.89 - Other specified anemias (5) Altered mental status: Qualifiers: Altered mental status type: unspecified Qualified Code(s): R41.82 - Altered mental status, unspecified (6) Weakness: (7) Constipation: Qualifiers: Constipation type: slow transit constipation Qualified Code(s): K59.01 - Slow transit constipation (8) HLD (hyperlipidemia): Qualifiers: Hyperlipidemia type: mixed hyperlipidemia Qualified Code(s): E78.2 - Mixed hyperlipidemia (9) Hypertension: Qualifiers: Hypertension type: primary hypertension Qualified Code(s): I10 - Essential (primary) hypertension (10) CHF (congestive heart failure): Qualifiers: Heart failure chronicity: acute on chronic Heart failure type: combined systolic and diastolic Qualified Code(s): I50.43 - Acute on chronic combined systolic (congestive) and diastolic (congestive) heart failure (11) CAD (coronary artery disease): Qualifiers: Associated angina: with stable angina Coronary Disease-Associated Artery/Lesion type: unspecified vessel or lesion type [place] vs. transplanted heart: unspecified whether [place] or transplanted heart Qualified Code(s): I25.118 - Atherosclerotic heart disease of [place] coronary artery with other forms of angina pectoris (12) Hypocalcemia: (13) Hypokalemia: DS: Summary Hospital Course Hospital Course: 12/30/2024 Ms. Layla Gomez is a 69 year old female admitted on 12/29/24 for further evaluation after being sent to the ER from PCP office after outpatient ultrasound revealed a superficial thrombophlebitis from the bicep down to the wrist of the right arm. Complete medical history unknown. Patient has a known medical of hisotry HTN, CAD, and CHF. CT and CXR were completed in the ER and there were no acute findings. WBC WNL. Initial CBC revealed anemia with a hemoglobin of 8.1 and hematocrit of 24.9. Hemoglobin has decreased to 7.4 this morning with a hematocrit of 22.8. Initial CMP revealed hypokalemia with a potassium of 3.3. Potassium has improved to 3.5 this morning. Initial BUN of 29 and creatinine of 1.8. BUN has improved to 25 with a creatinine of 1.5 this morning. Initial BNP was 703 and has increased to 1030 this morning. Patient's initial troponin showed elevation at 295.4 but patient was recently discharged from [facility] in [place] after having an acute myocardial infarction with cardiac stent placement. Serial troponin shows a decrease. Admitted to the floor and placed on a heparin drip per protocol. Patient appeared lethargic upon assessment and was oriented to person and place only. Right arm noted to have bruising, erythema, warmth, and non-pitting edema. Firmn ess and tenderness noted upon palpation to right forearm extending from wrist to elbow. Bruising also noted to right groin area. Patient is a poor historian at this time so daughter Rossy was contacted for patient's medical history. On 12/22/24 patient presented to the ER with complaints of cough, dyspnea, and swelling. She ultimately went into respiratory distress and was placed on a ventilator and transferred to [facility] in [place] for Acute DE, Acute CHF, Acute pulmonary edema, and Acute respiratory distress. Patient underwent coronary stent placement and was discharged from [facility] on 12/27/24 per daughter. Daughter reports that prior to patient's intubation she was alert and oriented, ambulatory, independent and "working". Patient has been having intermittent episodes of confusion during hospitalization that are consistent with hospital acquired delirium. Awaiting records from Dr. Delgado and [facility]. Blood cultures x 2 arranged, Rocephin 1 g IV daily, heparin drip per protocol for thrombophlebitis, at this University consult, . Records from Dr. Delgado obtained and [facility] in [place] records as well. Serial troponins remain followed so far negative patient profile for anemia was obtained, occult blood feces and patient was typed and crossed for 2 units of red blood cells and repeat CBC per protocol, neurochecks every 4 hours will monitor liver functions in the a.m. again, psych evaluation as well as PT evaluation fall precautions set up for patient 12/31/2024 Patient still confused today more alert still complaining of arm hurting still not eating or drinking well. Patient received sitting up in the recliner at bedside eating breakfast. She is awake, alert and oriented this morning. She reports that she feels better today and that her arm pain has improved. Right arm has improved in appearance with decreased swelling and bruising. AU consult completed with Dr. Cabello yesterday and agreeable with plan while awaiting records from [facility] in [place]. to continue to follow. H&H has continued to decline with a Hemoglobin of 6.9 and Hematocrit of 21 this morning. Occult blood feces is pending. Patient reports she hasn't had a bowel movement "so far this week". Will add Miralax. BNP has continued to increase and is now 1520. Will plan to transfuse 2 units PRBCs and diurese with Furosemide 20mg IV between units. Spoke with patient's launch engineer Dr. Silva and he recommended discontinuing heparin drip due to no evidence of DVT. He also recommended resuming home Brillinta and ASA along with supportive management including compression, elevation, and warm compresses to the right arm. 01/01/2025 patient woke up this morning alert oriented back to her old self arm still very tender still swollen patient family anxious to go home since she has been doing well and back to her regular self. Physical therapy denies need for any rehab at this time Status at Discharge Functional status at discharge: independent ambulation Overall status at discharge: patient is back to baseline Time Spent with Patient Time attestation: Total time spent providing and/or coordinating discharge services: 48 Time spent: greater than 30 minutes Exam Exam: Patient received sitting up in the recliner at bedside eating breakfast. She is awake, alert and oriented this morning. She reports that she feels better today and that her arm pain has improved. Right arm has improved in appearance with decreased swelling and bruising. AU consult completed with Dr. Cabello yesterday and agreeable with plan while awaiting records from [facility] in [place]. to continue to follow. H&H has continued to decline with a Hemoglobin of 6.9 and Hematocrit of 21 this morning. Occult blood feces is pending. Patient reports she hasn't had a bowel movement "so far this week". Will add Miralax. BNP has continued to increase and is now 1520. Will plan to transfuse 2 units PRBCs and diurese with Furosemide 20mg IV between units. Spoke with patient's launch engineer Dr. Silva and he recommended discontinuing heparin drip due to no evidence of DVT. He also recommended resuming home Brillinta and ASA along with supportive management including compression, elevation, and warm compresses to the right arm. Constitutional: normal general appearance, no apparent distress, average body habitus, limitations noted (physical limitations) and alert Vital Signs - 24 hr 12/31/24 11:00 12/31/24 12:48 12/31/24 13:04 Temperature 98 F 97.9 F 97.8 F Pulse Rate 75 78 Pulse Rate [Right Radial] 82 Respiratory Rate 19 20 18 Blood Pressure 131/69 148/80 Blood Pressure [Le ft Arm] 147/77 Pulse Oximetry 100 97 97 Oxygen Delivery Me thod Room Air 12/31/24 14:04 12/31/24 15:04 12/31/24 15:49 Temperature 98.3 F 98.3 F 97.4 F L Pulse Rate 83 74 80 Pulse Rate [Right Radial] Respiratory Rate 20 18 18 Blood Pressure 153/83 154/83 166/83 Blood Pressure [Le ft Arm] Pulse Oximetry 97 98 Oxygen Delivery Me thod 12/31/24 15:50 12/31/24 16:05 12/31/24 16:05 Temperature 97.4 F L 97.9 F 98.1 F Pulse Rate 80 79 82 Pulse Rate [Right Radial] Respiratory Rate 18 18 18 Blood Pressure 166/83 156/82 164/82 Blood Pressure [Le ft Arm] Pulse Oximetry 97 98 97 Oxygen Delivery Me thod 12/31/24 17:05 12/31/24 18:05 12/31/24 19:00 Temperature 97.9 F 98 F 98.1 F Pulse Rate 83 82 Pulse Rate [Right Radial] 82 Respiratory Rate 20 20 19 Blood Pressure 154/97 159/65 Blood Pressure [Le ft Arm] 172/70 Pulse Oximetry 97 97 100 Oxygen Delivery Me thod Room Air 12/31/24 20:58 12/31/24 20:59 12/31/24 23:55 Temperature 97.6 F Pulse Rate 82 Pulse Rate [Right Radial] 78 Respiratory Rate 17 Blood Pressure 172/70 172/70 Blood Pressure [Le ft Arm] 179/65 Pulse Oximetry 96 Oxygen Delivery Me thod Room Air 01/01/25 03:00 01/01/25 07:00 01/01/25 09:38 Temperature 98.2 F 97.7 F Pulse Rate Pulse Rate [Right Radial] 78 81 Respiratory Rate 17 18 Blood Pressure 161/98 Blood Pressure [Le ft Arm] 152/70 161/98 Pulse Oximetry 96 98 Oxygen Delivery Me thod Room Air Room Air 01/01/25 09:39 01/01/25 09:39 Temperature Pulse Rate 81 Pulse Rate [Right Radial] Respiratory Rate Blood Pressure 161/98 Blood Pressure [Le ft Arm] Pulse Oximetry Oxygen Delivery Me thod HENMT: normocephalic, head/scalp atraumatic, hearing grossly normal bilaterally, external ears normal and EACs normal Eyes: PERRL, EOMs intact bilaterally, conjunctivae normal and no scleral icterus Neck/C-Spine: visual inspection normal and trachea midline Lymph: no lymphadenopathy noted and no lymphedema noted Chest: inspection of chest normal and palpation of chest normal Respiratory: breath sounds equal bilaterally, normal respiratory effort, clear to auscultation bilaterally, no wheezes, no rales, no retractions and no use of accessory muscles Cardiovascular: normal heart rate noted, regular rhythm noted, no gallop, no rub, no murmur, no JVD and no clicks Gastrointestinal: abdomen normal to inspection, abdomen soft to palpation, nontender to palpation, nontender to percussion, nondistended and normoactive bowel sounds Genitourinary: no CVA tenderness and bladder normal to palpation Back/Pelvis: spine normal to inspection, no thoracic spine tenderness, no lumbar spine tenderness, thoracic spine ROM normal and lumbar spine ROM normal Extremities: Bruising, erythema, edema, and tenderness to right upper extremity has improved. Psychiatry: Mental Status Exam documented within this Exam's Psych section oriented x3, thought process normal, cooperative and affect normal Skin: skin color normal Bruising to right arm and right groin from recent cardiac stent placement. DS: Data Data Completed and Pending Labs on day of discharge: Labs from last 24 hours 01/01/25 12/31/24 12/31/24 05:45 10:48 10:42 WBC 8.3 RBC 4.3 Hgb 10.2 L Hct 31.1 L MCV 73.2 L MCH 24.0 L MCHC 32.8 L RDW 20.5 H Plt Count 343 MPV 8.0 Gran % 76.3 H Lymph % (Auto) 10.1 L [place] % (Auto) 7.8 Eos % (Auto) 5.1 H Baso % (Auto) 0.7 Lymph # (Auto) 0.8 L [place] # (Auto) 0.6 L Eos # (Auto) 0.4 H Baso # (Auto) 0.1 Absolute Gran (auto) 6.3 H APTT 42.2 H Sodium 139 Potassium 4.0 Chloride 104.0 Carbon Dioxide 25 Anion Gap 10.0 BUN 21 H Creatinine 1.4 H Estimated GFR 40.2 Glucose 95 Calcium 8.3 L Total Bilirubin 0.70 AST 18 ALT 30 Alkaline Phosphatase 73 Total Protein 6.3 L Albumin 2.3 L RBC Folate Hemolysate RBC Folate Hematocrit Crossmatch (AHG) See Detail 12/30/24 09:08 WBC RBC Hgb Hct MCV MCH MCHC RDW Plt Count MPV Gran % Lymph % (Auto) [place] % (Auto) Eos % (Auto) Baso % (Auto) Lymph # (Auto) [place] # (Auto) Eos # (Auto) Baso # (Auto) Absolute Gran (auto) APTT Sodium Potassium Chloride Carbon Dioxide Anion Gap BUN Creatinine Estimated GFR Glucose Calcium Total Bilirubin AST ALT Alkaline Phosphatase Total Protein Albumin RBC Folate Hemolysate 201.0 RBC Folate 848 Hematocrit 23.7 L Crossmatch (G) Preliminary micro results at discharge 12/30/24 09:35 Blood Culture - Preliminary Blood - Venous Draw (Peripheral) Discharge Plan Discharge Disposition: Home, Self-Care Condition: Improved Discharge Medications: New aspirin 81 mg Tablet,Delayed Release (Dr/Ec) 81 mg PO DAILY Qty: 30 0RF Continued atorvastatin 40 mg tablet 40 mg PO BEDTIME carvedilol 12.5 mg tablet 12.5 mg PO BID furosemide 40 mg tablet 40 mg PO DAILY hydralazine 25 mg tablet 25 mg PO TID ticagrelor [Brilinta] 90 mg tablet 90 mg PO BID Discontinued cefdinir 300 mg capsule 300 mg PO DAILY Discharge Orders: Discharge Order (Routine); Ordered 01/01/25 Ordered By: Lizeth He Activity: as per physical therapy and increase activity as tolerated Diet: low fat, low cholesterol and low salt diet Interventions: Discharge Assessment Last Done: 01/01/25 15:09 MED/SURG & ICU Observation Charge Sheet Last Done: 01/01/25 15:08 Patient Instructions: Dehydration (GEN), Anemia (GEN) Activity Restrictions/Additional Instructions: Elevate mass arm with swelling and thrombophlebitis Increased pain or swelling she needs to return to the ER to her PCP as appropriate as soon as possible Follow-up cardiology As directed prior to discharge from [facility] Follow-up PCP in 1 week Forms: Portal/Health Info Access Inst Follow-Ups: Lizeth He DO [Primary Care Provider, Medical] - 01/06/25 3:15 pm Discharge Date/Time: 01/01/25 15:47
[2025-01-01 13:35] VITALS: BP 136/82; RESP 20; TEMP 97.5
[2025-01-02 18:51] LABS: Bilirubin Direct 0.08 mg/dL (0.0-0.30)
== END 2025-01-01 15:47 | disposition home or self-care (01) | DRG 280 ==
LOC: MS 11:41 → ED 11:41 → OBSVTOIN 18:23 → MS 20:20
PROVIDERS: ADMIT Nurse Practitioner Family; ATTEND Nurse Practitioner Family
DX: I80.8 Phlebitis and thrombophlebitis of other sites; E78.2 Mixed hyperlipidemia; N17.9 Acute kidney failure, unspecified; R41.82 Altered mental status, unspecified; I50.43 Acute on chronic combined systolic (congestive) and diastolic (congestive) heart failure; Z91.81 History of falling; I21.9 Acute myocardial infarction, unspecified; I25.10 Atherosclerotic heart disease of native coronary artery without angina pectoris; D64.89 Other specified anemias; K59.01 Slow transit constipation; E87.6 Hypokalemia; E86.0 Dehydration; E83.51 Hypocalcemia; I11.0 Hypertensive heart disease with heart failure; R53.1 Weakness